=== PATIENT | male | born 1960 | race Caucasian/White ===

== ENCOUNTER 2016-12-23 10:11 | Outpatient (CLI) | payer OTHER ==
[~2016-12-23] VITALS: Ht 175.3 cm; Wt 112.7 kg
[2016-12-23 09:52] VITALS: BP 139/97; PULSE 67; RESP 18; Ht 175.3 cm; Wt 112.7 kg
[2016-12-23] MEDS ORDERED: NAPR275T83 PO (11:49)
--- NOTE | 2016-12-23 12:20 | CONS ---
DATE OF CONSULTATION: 12/23/2016 [facility] Initial outpatient consultation note. PLACE OF SERVICE: [facility]atobiliary and pancreas center at [facility]. DATE: 12/23/2016 HISTORY OF PRESENT ILLNESS: The patient is a very pleasant 56- year-old gentleman whom we were kindly asked to consult regarding management of a small 1 cm mass behind the right ear that he has noticed for the last 6 months, as well as evaluation of an area that is approximately 3 to 4 cm in the anterior right side, that the patient has had most of his life. Neither of these areas have given him any symptoms of pain or other major problems. He reports the area behind his right ear to have decreased in size over the last few months. There is no associated symptoms with his jaws, or with his hearing. No other major complaints. PAST MEDICAL HISTORY: A fairly healthy gentleman with perhaps an issue with his weight. But otherwise, no major reported medical problems. SOCIAL HISTORY: The patient lives with his family. He has 11 children. He works in a [employer] job. He does not smoke, drink or use intravenous drugs. FAMILY HISTORY: No mention of major medical, surgical or oncological problems in the family. REVIEW OF SYSTEMS: Other than the above mentioned, there are no other pertinent positive or pertinent negatives in the complete 14 point review of systems. PHYSICAL EXAMINATION: GENERAL APPEARANCE: The patient appears to be a very pleasant gentleman of decent. Appearing stated age. Sitting in a chair comfortably and in no acute distress. His BMI is roughly between 25 and 30. VITAL SIGNS: Stable. HEAD/NECK: Demonstrate a 1 cm area that is soft to palpation right behind his right ear in the posterior triangle of the neck, right at the apex. There is no tenderness in this area. The skin overlying it appears to be pink and normal there is no discharge in the region. There is no issues with his temporal mandibular joints. His hearing and vision appears to be grossly intact. LUNGS: His chest rises symmetrically with each breath and there is no obvious wheezing, rales or rhonchi on the gross exam. HEART: His pulses are palpable and regular. ABDOMEN: Soft. Nontender and nondistended. SKIN: His skin appears to be pink and feels warm to touch. NEUROLOGIC: He is awake, alert and follows commands appropriately. LABORATORY: None for today. IMAGING: None for today. IMPRESSION AND PLAN: Small lipoma of right posterior neck area as well as right anterior thigh region. No indication for surgical intervention. I reassured the patient and he appears to understand and agreed with the plans. With the above assessment, I have recommended the following: Symptomatic following of these lesions. Thank you again for allowing us to participate in the care of this very pleasant gentleman and, I am certain, his wonderful family. If there are any questions, please feel free to contact me at [phone]. Dictated By: Jordon Reyes MD /[email or web address] /Document#: [id number] MARLA
== END 2016-12-23 17:00 | disposition home or self-care (01) ==
LOC: HPC 10:11
PROVIDERS: ATTEND Transplant Surgery
DX: D17.0 Benign lipomatous neoplasm of skin and subcutaneous tissue of head, face and neck (principal); D17.23 Benign lipomatous neoplasm of skin and subcutaneous tissue of right leg
CPT/HCPCS: G0463